=== PATIENT | female | born 1965 | race Two or more races ===

== ENCOUNTER 2022-08-20 15:46 | Emergency (ER) | payer BC, OTHER ==
[~2022-08-20] VITALS: Ht 160 cm; Wt 150.0 kg
[2022-08-20] MEDS ORDERED: ACETAMINOPHEN 325 MG TAB PO ONE (16:30)
[2022-08-20 18:02] LABS: Urine Bacteria NONE SEEN /hpf (None Seen); Urine Blood Negative /uL (Negative); Urine Specific Gravity 1.007 (1.001-1.035); Urine WBC 6 /hpf (0 - 5)
[2022-08-20] MEDS ORDERED: HYDROcodone-ACET 5/325MG TAB PO ONE (22:15)
[2022-08-20] MEDS ORDERED: ONDANSETRON ODT 4 MG TAB PO ONE (22:15)
[2022-08-20] MEDS ORDERED: MORPHINE SULFATE 4 MG/ML SYR/VIAL IM ONE (23:15)
[2022-08-20 23:24] LABS: Basophils # (auto) 0 10 ^3/uL (0-0.2); Basophils % (auto) 0.3 % (0.0-2.0); Eosinophils # (auto) 0 10 ^3/uL (0-0.8); Eosinophils % (auto) 0.2 % (0.0-7.0); Hematocrit 41.8 % (36.0-46.0); Hemoglobin 13.9 g/dL (12.2-16.2); Lymphocytes # (auto) 3.5 10 ^3/uL (0.4-5.4); Lymphocytes % (auto) 21.8 % (10.0-50.0); Mean Corpuscular Hemoglobin 29.3 pg (28.0-32.0); Mean Corpuscular Hgb Conc. 33.3 g/dL (32.0-36.0); Monocytes # (auto) 0.9 10 ^3/uL (0-1.3); Monocytes % (auto) 5.8 % (0.0-12.0); Neutrophils # (auto) 11.4 10 ^3/uL (1.6-8.6); Neutrophils % (auto) 71.9 % (37.0-80.0); Nucleated Red Blood Cells % 0.1 %; Red Blood Cells 4.75 10^6/uL (4.0-5.20); White Blood Cell 15.9 10^3/uL (4.4-10.8)
[2022-08-20 23:45] LABS: BUN/Creatinine Ratio 15.2; Calcium 9.5 mg/dL (8.5-10.1)
[2022-08-20 23:48] LABS: Bilirubin, Total 1.6 mg/dL (0.2-1.0); Total Protein 7.6 g/dL (6.4-8.2)
[2022-08-21 01:00] VITALS: BP 143/78
[2022-08-21] MEDS ORDERED: DexAMETHasone SOD PHOS 10MG/1ML VIAL INJ IM ONE (01:00)
[2022-08-21] MEDS ORDERED: ONDA-144 PO (01:03)
[2022-08-21] MEDS ORDERED: HYDR-4902 PO (01:03)
[2022-08-21] MEDS ORDERED: AZITTAB PO (01:03)
[2022-08-21] MEDS ORDERED: PRED20TA2 PO (01:03)
== END 2022-08-21 01:15 | disposition home or self-care (01) ==
LOC: ER 15:46
DX: R10.30 Lower abdominal pain, unspecified (principal); M54.59 Other low back pain; R51.9 Headache, unspecified; I10 Essential (primary) hypertension
CPT/HCPCS: 36415; 70450; 71045; 71250; 72125; 74176; 80053; 81001; 84484; 85025; 96372; 99285; J1100; J2270; Q0162